=== PATIENT | female | born 1995 | race Caucasian/White ===

== ENCOUNTER → 2024-08-18 08:10 | Outpatient (REF) | payer OTHER, SELFPAY | LOC: PNTC 08:10 | PROVIDERS: ATTENDING PHYSICIAN Student in an Organized Health Care Education/Training Program | DX: Z36.0 Encounter for antenatal screening for chromosomal anomalies (principal); Z36.82 Encounter for antenatal screening for nuchal translucency | CPT/HCPCS: 76801; 76813 ==

== ENCOUNTER → 2024-10-10 14:35 | Outpatient (REF) | payer OTHER, SELFPAY | LOC: PNTC 14:35 | PROVIDERS: ATTENDING PHYSICIAN Obstetrics & Gynecology | DX: Z34.82 Encounter for supervision of other normal pregnancy, second trimester (principal) | CPT/HCPCS: 76811 ==

== ENCOUNTER 2024-11-18 22:30 | Emergency (ER) | payer OTHER, SELFPAY ==
[2024-11-18 22:38] VITALS: BP 123/78
--- NOTE | 2024-11-19 01:01 | ED.GENMED ---
History of Present Illness
General
Chief Complaint: Swelling
Time Seen by Provider: 11/18/24 23:21
History of Present Illness
History of Present Illness:
29-year-old female, currently 26 weeks gestational age, presents for evaluation of right calf pain and right leg swelling beginning today. Describes the pain as 'like a charley horse'. Worse when walking. Minimal pain at present. Denies any
lower extremity numbness. Continues with good movements, denies vaginal discharge
Review of Systems
Review of Systems
Allergies reviewed?: Yes
All Other Systems: ROS reviewed and negative except as documented in HPI and ROS
Phy Exam
Physical Exam
Physical Exam:
GEN: Well appearing, NAD, WDWN
HEENT: Oral mucosa moist, no scleral icterus
Cardiac: Regular rate
Lung: No respiratory distress, no tachypnea
MSK: No gross tenderness to the right calf, calf compartments are soft x 4 there is no pain with passive stretch. Borderline circumferential edema of the right lower leg, strong dorsalis pedis and posterior tibialis pulses
Skin: Good color, no pallor or jaundice, no rashes
Neuro: AO x3, moves all extremities freely
Psych: Calm, cooperative
Course
Orders/Labs/Results
Orders:
Orders
11/18/24 22:36
Legs, Right US [US Periph Venous LOWER Ext RT] Urgent
Comment: 26 weeks .
Reason For Exam: right lower calf swelling that started today
Vital Signs
Initial and Last Documented VS:
Initial Vital Signs
Temp Pulse Resp BP Pulse Ox
98.2 F 75 18 123/78 97
11/18/24 22:38 11/18/24 22:38 11/18/24 22:38 11/18/24 22:38 11/18/24 22:38
Last Documented Vital Signs
Temp Pulse Resp BP Pulse Ox
98.2 F 75 18 123/78 97
11/18/24 22:38 11/18/24 22:38 11/18/24 22:38 11/18/24 22:38 11/18/24 22:38
MDM/Problems Addressed
MDM/Problems Addressed:
DVT study negative per tech, likely soft tissue injury, discussed supportive care
*Critical Care Note
Total Time (30-74mins, 75-104mins- exclusive of procedures): Not Applicable
ED Attending Note
-
Portions of this chart may have been created with voice recognition software.� Occasional wrong word or��sound alike� substitutions may have occurred due to the inherent limitations of voice recognition software.
Discharge Plan
Departure
Patient Disposition: Home (Routine Discharge)
Date of Disposition: 11/19/24
Time of Disposition: 01:09
Patient with high blood pressure during this ER visit?: No
Discharge Problem:
Strain of right calf muscle
Instructions: Muscle Strain ED
Referrals:
Rula Torre MD [Family Provider] -
Activity Restrictions/Additional Instructions:
Try over the counter magnesium supplements if symptoms persist
Tylenol as needed for pain
Interventions
Interventions:
*Risk Screen - Suicide Last Done: 11/19/24 01:22
*General Assessment Last Done: 11/19/24 00:19
*Neglect/Abuse Screening Last Done: 11/19/24 01:22
ED- Fall Risk Assessment Last Done: 11/19/24 01:22
*Nursing Disposition Last Done: 11/19/24 01:23
ED- Cardiac Assessment Last Done: 11/19/24 00:18
ED- Pulmonary Assessment Last Done: 11/19/24 00:18
ED-Skin Assessment Last Done: 11/19/24 00:18
Discharge Date and Time
Discharge Date/Time: 11/19/24 01:23
Print Language: CYPRIOT
== END 2024-11-19 01:23 | disposition home or self-care (01) ==
LOC: EMR 22:30
PROVIDERS: EMERGENCY PHYSICIAN Emergency Medicine; FAMILY PHYSICIAN Internal Medicine
DX: O9A.212 Injury, poisoning and certain other consequences of external causes complicating pregnancy, second trimester (principal); S86.811A Strain of other muscle(s) and tendon(s) at lower leg level, right leg, initial encounter; X58.XXXA Exposure to other specified factors, initial encounter; Z3A.26 26 weeks gestation of pregnancy
CPT/HCPCS: 99284; 93971

== ENCOUNTER → 2024-12-07 10:17 | Outpatient (REF) | payer OTHER, SELFPAY | LOC: PNTC 10:17 | PROVIDERS: ATTENDING PHYSICIAN Obstetrics & Gynecology | DX: Z29.13 Encounter for prophylactic Rho(D) immune globulin (principal) | CPT/HCPCS: 36415; 86850; 86900; 86901; 96372; J2790 ==

== ENCOUNTER 2025-02-20 04:41 | Inpatient (IN) | payer OTHER, SELFPAY ==
[2025-02-20 05:05] VITALS: BP 137/86; BMI 30.7
[2025-02-20] MEDS: LR 1000 IV (05:45)
[2025-02-20] MEDS: CLEOCIN 50 IV (05:57)
[2025-02-20 06:14] LABS: % Basophils 0.4 % (0-2); % Eosinophils 3.4 % (0-6); % Immature Granulocytes 1.3 % (0-0.5); % Monocytes 6.5 % (1.7-9.3); % Neutrophils 75.4 % (42.2-75.2); Absolute Basophils 0.1 10^3/uL (0-0.2); Absolute Eosinophils 0.5 10^3/uL (0-0.7); Absolute Immature Granulocytes 0.2 10^3/uL (0-0.05); Absolute Lymphocytes 1.8 10^3/uL (1.2-3.4); Absolute Monocytes 0.9 10^3/uL (0.1-0.6); Absolute Neutrophils 10.5 10^3/uL (1.4-6.5); Hematocrit 39.1 % (37.0-47.0); Hemoglobin 13.7 g/dL (12.0-16.0); Mean Corpuscular Hgb 30.5 pg (27.0-31.0); Mean Corpuscular Volume 87.1 fL (81.0-99.0); Mean Platelet Volume 10.9 fL (7.4-10.4); Nucleated Red Blood Cells % 0 %; Platelet Count 178 10^3/uL (130-400); Red Blood Cell Count 4.49 10^6/uL (4.20-5.40); Red Cell Dist. Width 13.8 % (11.5-14.5); White Blood Cell Count 13.9 10^3/uL (4.8-10.8)
[2025-02-20] MEDS: SYNTHROID 50 MCG PO (06:21)
== END 2025-02-20 10:27 | disposition home or self-care (01) | DRG 833 ==
LOC: LDRP 04:41
PROVIDERS: Obstetrics & Gynecology; Student in an Organized Health Care Education/Training Program; ADMITTING PHYSICIAN Obstetrics & Gynecology; FAMILY PHYSICIAN Internal Medicine
PROC: 4A1HXCZ Monitoring of Products of Conception, Cardiac Rate, External Approach (ICD-10-PCS; 2025-02-20)
DX: O47.1 False labor at or after 37 completed weeks of gestation (principal); Z3A.39 39 weeks gestation of pregnancy
CPT/HCPCS: 85014; 85018; 85025; 85461; 86780; 86850; 86900; 86901; G0378; J2790

== ENCOUNTER 2025-02-20 16:59 | Inpatient (IN) | payer OTHER, SELFPAY ==
[2025-02-20 17:12] VITALS: BP 115/77; BMI 30.7
[2025-02-20] MEDS: LR 1000 IV (17:15)
[2025-02-20] MEDS: CLEOCIN 50 IV (17:52)
[2025-02-20 17:58] LABS: % Basophils 0.4 % (0-2); % Eosinophils 1.8 % (0-6); % Immature Granulocytes 0.5 % (0-0.5); % Lymphocytes 13.2 % (20.5-51.1); % Monocytes 7.3 % (1.7-9.3); % Neutrophils 76.8 % (42.2-75.2); Absolute Basophils 0.1 10^3/uL (0-0.2); Absolute Eosinophils 0.3 10^3/uL (0-0.7); Absolute Immature Granulocytes 0.1 10^3/uL (0-0.05); Absolute Monocytes 1.1 10^3/uL (0.1-0.6); Absolute Neutrophils 11.8 10^3/uL (1.4-6.5); Hematocrit 40.8 % (37.0-47.0); Hemoglobin 13.8 g/dL (12.0-16.0); Mean Corp Hgb Conc. 33.8 g/dL (33.0-37.0); Mean Corpuscular Hgb 30.3 pg (27.0-31.0); Mean Corpuscular Volume 89.7 fL (81.0-99.0); Mean Platelet Volume 10.9 fL (7.4-10.4); Nucleated Red Blood Cells % 0 %; Platelet Count 213 10^3/uL (130-400); Red Blood Cell Count 4.55 10^6/uL (4.20-5.40); Red Cell Dist. Width 13.9 % (11.5-14.5); White Blood Cell Count 15.4 10^3/uL (4.8-10.8)
[2025-02-20] MEDS: SUBLIMAZE 100 MCG EPIDURAL (20:21)
[2025-02-20] MEDS: FENTANYL/BUPIVACAINE 100 EPIDURAL (20:21)
[2025-02-21] MEDS: CLEOCIN 50 IV (01:58)
[2025-02-21] MEDS: FENTANYL/BUPIVACAINE 100 EPIDURAL (04:09)
[2025-02-21] MEDS: XYLOCAINE-MPF 1% VIAL 30 ML INFIL (07:12)
[2025-02-21] MEDS: PITOCIN 30 UNITS/NSS 500 ML IV (07:19)
[2025-02-21] MEDS: MOTRIN 600 MG PO ×3 (08:13→23:07)
[2025-02-21] MEDS: PRENATAL PLUS 1 TABLET PO (08:13)
[2025-02-21] MEDS: SENOKOT-S 1 TABLET PO (16:15)
[2025-02-21] MEDS: TYLENOL 650 MG PO (20:05)
[2025-02-22] MEDS: TYLENOL 650 MG PO ×4 (03:37→23:10)
[2025-02-22 04:17] LABS: Hematocrit 34.3 % (37.0-47.0); Hemoglobin 11.7 g/dL (12.0-16.0)
[2025-02-22] MEDS: PRENATAL PLUS 1 TABLET PO (07:36)
[2025-02-22] MEDS: SENOKOT-S 1 TABLET PO (07:36)
[2025-02-22] MEDS: RHOGAM 300 MCG IM (12:18)
--- NOTE | 2025-02-23 03:31 | DOWNTIME ---
There was a [employer] Downtime on 02/23/2025 from 0200 to 02/24/2024 at 0318 . Downtime documentation of patient's care, including medication administrations, has been reconciled in the electronic record per guidelines. Refer to the
patient's paper chart under the miscellaneous tab to see printed paper medication records and downtime forms.
[2025-02-23] MEDS: PRENATAL PLUS 1 TABLET PO (08:46)
[2025-02-23] MEDS: SENOKOT-S 1 TABLET PO (08:46)
[2025-02-23] MEDS: TYLENOL 650 MG PO (09:09)
[2025-02-23 13:21] LABS: Syphilis/T. pallidum Ab Reflex Negative (Negative)
== END 2025-02-23 13:00 | disposition home or self-care (01) | DRG 806 ==
LOC: LDRP 16:59
PROVIDERS: ADMITTING PHYSICIAN Obstetrics & Gynecology
PROC: 0UQMXZZ Repair Vulva, External Approach (ICD-10-PCS; 2025-02-21)
PROC: 4A1HXCZ Monitoring of Products of Conception, Cardiac Rate, External Approach (ICD-10-PCS; 2025-02-21)
PROC: 10E0XZZ Delivery of Products of Conception, External Approach (ICD-10-PCS; 2025-02-21)
PROC: 0KQM0ZZ Repair Perineum Muscle, Open Approach (ICD-10-PCS; 2025-02-21)
PROC: 3E0234Z Introduction of Serum, Toxoid and Vaccine into Muscle, Percutaneous Approach (ICD-10-PCS; 2025-02-22)
DX: O99.02 Anemia complicating childbirth (principal); O87.0 Superficial thrombophlebitis in the puerperium; Z37.0 Single live birth; O99.824 Streptococcus B carrier state complicating childbirth; O70.1 Second degree perineal laceration during delivery; O71.82 Other specified trauma to perineum and vulva; I80.02 Phlebitis and thrombophlebitis of superficial vessels of left lower extremity; O26.893 Other specified pregnancy related conditions, third trimester; O99.284 Endocrine, nutritional and metabolic diseases complicating childbirth; E03.9 Hypothyroidism, unspecified; Z3A.39 39 weeks gestation of pregnancy; Z88.0 Allergy status to penicillin; Z79.890 Hormone replacement therapy; Z67.41 Type O blood, Rh negative
CPT/HCPCS: 85014; 85018; 85025; 85461; 86780; 86850; 86900; 86901; J2790